=== PATIENT | male | born 1970 | race Caucasian/White ===

== ENCOUNTER 2018-02-19 11:56 | Emergency (ER) | payer BC, OTHER ==
--- NOTE | 2018-02-19 12:10 | EDM.PDOC ---
ED HPI GENERAL MEDICAL PROBLEM - General Chief Complaint: Flank Pain Stated Complaint: FLANK PAIN Time Seen by Provider: 02/19/18 12:10 Source of Information: Reports: Patient - History of Present Illness INITIAL COMMENTS - FREE TEXT/NARRATIVE: Patient is here today accompanied by his father for evaluation of left flank pain that started approximately 90 minutes ago. He states that it radiates into his back and this well as into his left groin. Patient also notes that he has had some nausea and belching. He did eat breakfast this morning without difficulty. Denies any vomiting or diarrhea. History of renal stones. Denies any dysuria or hematuria.On 81 mg aspirin daily, no other medications. Reports normal physical at medical clinic in [place] approximately 2 and half years ago. Left Flank Pain Score (Numeric/FACES): 8 - Related Data Allergies Allergy/AdvReac Type Severity Reaction Status Date / Time No Known Allergies Allergy Verified 02/19/18 12:08 Home Meds: Home Meds Hydrocodone/Acetaminophen [Hydrocodon-Acetaminophen 5-325] 1 each PO Q6HR PRN # 10 tablet 02/19/18 [Rx] Ketorolac Tromethamine 10 mg PO Q6HR #20 tablet 02/19/18 [Rx] Tamsulosin [Tamsulosin 24 Hr] 0.4 mg PO DAILY #15 cap.er 02/19/18 [Rx] ED ROS GENERAL - Review of Systems Review Of Systems: See Below Constitutional: Denies: Fever, Chills, Malaise, Weakness, Fatigue Respiratory: Reports: No Symptoms Cardiovascular: Reports: No Symptoms GI/Abdominal: Reports: Abdominal Pain, Nausea. Denies: Anorexia, Constipation, Diarrhea, Decreased Appetite, Vomiting : Reports: Flank Pain. Denies: Dysuria, Frequency, Hematuria Skin: Reports: No Symptoms ED EXAM, RENAL/ - Physical Exam Exam: See Below Exam Limited By: No Limitations General Appearance: Alert, WD/WN, No Apparent Distress Respiratory/Chest: No Respiratory Distress, Lungs Clear, Normal Breath Sounds Cardiovascular: Normal Peripheral Pulses, Regular Rate, Rhythm, No Murmur GI/Abdominal: Normal Bowel Sounds, Soft, Non-Tender Back Exam: Normal Inspection. No: CVA Tenderness (L), CVA Tenderness (R) Neurological: Alert, Oriented Course - Vital Signs Last Recorded V/S: Last Vital Signs Temp 96.6 F 02/19/18 12:04 Pulse 60 02/19/18 12:04 Resp 18 02/19/18 12:04 BP 132/89 02/19/18 12:04 Pulse Ox 100 02/19/18 12:04 - Orders/Labs/Meds Orders: Active Orders 24 hr Category Date Time Status UA W/MICROSCOPIC [URIN] Stat Lab 02/19/18 12:55 Ordered Labs: Laboratory Tests 02/19/18 02/19/18 02/19/18 Range/Units 12:10 12:10 12:55 WBC 9.87 H (4.23-9.07) K/mm3 RBC 5.05 (4.63-6.08) M/mm3 Hgb 15.0 (13.7-17.5) gm/L Hct 45.2 (40.1-51.0) % MCV 89.5 (79.0-92.2) fl MCH 29.7 (25.7-32.2) pg MCHC 33.2 (32.2-35.5) g/dl RDW Std Deviation 41.6 (35.1-43.9) fL Plt Count 256 (163-337) K/mm3 MPV 8.8 L (9.4-12.3) fl Neutrophils % (Manual) 59 (40-60) % Band Neutrophils % 1 (0-10) % Lymphocytes % (Manual) 33 (20-40) % Atypical Lymphs % 0 % Monocytes % (Manual) 0 L (2-10) % Eosinophils % (Manual) 6 (0.8-7.0) % Basophils % (Manual) 1 (0.2-1.2) Platelet Estimate Adequate RBC Morph Comment Normal Sodium 142 (136-145) mEq/L Potassium 4.0 (3.5-5.1) mEq/L Chloride 105 (98-107) mEq/L Carbon Dioxide 27 (21-32) mEq/L Anion Gap 14.0 (5-15) BUN 21 H (7-18) mg/dL Creatinine 1.2 (0.7-1.3) mg/dL Est Cr Clr Drug Dosing 79.31 mL/min Estimated GFR (MDRD) > 60 (>60) mL/min BUN/Creatinine Ratio 17.5 (14-18) Glucose 119 H (74-106) mg/dL Calcium 8.8 (8.5-10.1) mg/dL Total Bilirubin 0.5 (0.2-1.0) mg/dL AST 14 L (15-37) U/L ALT 13 L (16-63) U/L Alkaline Phosphatase 52 (46-116) U/L C-Reactive Protein < 0.2 (<1.0) mg/dL Total Protein 7.2 (6.4-8.2) g/dl Albumin 3.9 (3.4-5.0) g/dl Globulin 3.3 gm/dL Albumin/Globulin Ratio 1.2 (1-2) Urine Color Yellow (Yellow) Urine Appearance Clear (Clear) Urine pH 6.0 (5.0-8.0) Ur Specific [place] > or = 1.030 (1.005-1.030) Urine Protein 2+ H (Negative) Urine Glucose (UA) Negative (Negative) Urine Ketones Trace H (Negative) Urine Occult Blood 3+ H (Negative) Urine Nitrite Negative (Negative) Urine Bilirubin 1+ H (Negative) Urine Urobilinogen 1.0 (0.2-1.0) Ur Leukocyte Esterase Negative (Negative) Urine RBC Too numerous to cnt H (0-5) /hpf Urine WBC 0-5 (0-5) /hpf Ur Epithelial Cells 0-5 (0-5) /hpf Urine Bacteria Few (FEW) /hpf Urine Mucus Moderate H (FEW) /hpf Meds: Medications Discontinued Medications Generic Name Dose Route Start Last Admin Trade Name Freq PRN Reason Stop Dose Admin Sodium Chloride 1,000 mls @ 999 mls/hr 02/19/18 12:48 02/19/18 13:01 Normal Saline IV 02/19/18 13:48 999 mls/hr ONETIME ONE Administration Ketorolac Tromethamine 30 mg 02/19/18 12:48 02/19/18 13:02 Toradol IVPUSH 02/19/18 12:49 30 mg ONETIME ONE Administration - Re-Assessments/Exams Free Text/Narrative Re-Assessment/Exam: Urinalysis with 3+ hematuria. KUB demonstrates 2.6 mm calcification which likely signifies a left ureteral stone. Will treat with PO ketorolac, hydrocodone as needed for breakthrough pain. He will take Flomax and push oral intake of fluids. He'll follow-up with PCP if this does not pass within the next few days or certainly return to emergency room if needed. 02/19/18 20:09 Departure - Departure Time of Disposition: 14:04 Disposition: Home, Self-Care 01 Condition: Good Clinical Impression: Nephrolithiasis - Discharge Information Prescriptions: Hydrocodone/Acetaminophen [Hydrocodon-Acetaminophen 5-325] 1 each PO Q6HR PRN # 10 tablet PRN Reason: Pain Ketorolac Tromethamine 10 mg PO Q6HR #20 tablet Tamsulosin [Tamsulosin 24 Hr] 0.4 mg PO DAILY #15 cap.er Instructions: Kidney Stones, [id number] Referrals: PCP,Unknown [Primary Care Provider] - Forms: ED Department Discharge Additional Instructions: You were evaluated in the ER for kidney stone. I recommend that you push fluids as much as possible. Flomax daily. ketorolac every 6 hours as needed for pain hydrocodone for more severe pain Follow-up with your primary provider in 1 week or return to ER if needed. - My Orders Last 24 Hours: My Active Orders 02/19/18 12:55 UA W/MICROSCOPIC [URIN] Stat - Assessment/Plan Last 24 Hours: My Active Orders 02/19/18 12:55 UA W/MICROSCOPIC [URIN] Stat
[2018-02-19] MEDS ORDERED: Ketorolac 30 MG/ML SDV IVPUSH ONE (12:48)
[2018-02-19] MEDS ORDERED: Sodium Chloride 0.9% 1,000 ML IV ONE (12:48)
--- NOTE | 2018-02-19 13:20 | CR ---
Abdomen: Supine view of the abdomen was obtained. Comparison: No previous study. Bowel gas pattern appears normal. Small calcification is seen within the left abdomen between the transverse process of L2 and L3. Calcification measures around 2.6 mm and could possibly represent a proximal ureteral stone. No other abnormal calcifications are seen. No soft tissue abnormality is noted. Impression: 1. 2.6 mm calcification as described above which could represent a proximal left ureteral stone. 2. Supine abdominal x-ray is otherwise unremarkable. Diagnostic code #3
== END 2018-02-19 14:24 | disposition home or self-care (01) ==
LOC: JD.ED 11:56
DX: N20.0 Calculus of kidney (principal); Z79.899 Other long term (current) drug therapy
CPT/HCPCS: 36415; 74018; 80053; 81001; 85007; 85027; 86140; 96361; 96374; 99284; J1885; J7040